=== PATIENT | male | born 1965 ===

== ENCOUNTER 2016-12-22 19:39 | Emergency (ER) | payer MEDICARE, MEDICAID ==
--- NOTE | ~2016-12-22 | ER ---
PATIENT'S NAME: LAZARUS [facility] AGE: 51 Y [address] ROOM: [place], [place] [address] LOCATION: [facility] ADMIT DATE: 12/22/2016 ER/Outpatient Report DISCHARGE DATE: 12/22/2016 FAMILY PHYSICIAN: Luís Sparks MD ATTENDING PHYSICIAN: Matt Lovelace Time of Arrival: 1954 hours. Time of Evaluation: 2010 hours. CHIEF COMPLAINT: Abdominal pain. HISTORY OF PRESENT ILLNESS: The patient states he has been having mid to right epigastric pain for the past 4 days. States that it has become more constant and increased in intensity today. States he ate pizza on Wednesday, and ever since then, the pain has come and gone, been nauseated, no vomiting. He has had chills. He has had some urinary frequency and urgency, but he states that is normal for him. He states he has had some diarrhea stools. Last stool was today. States he was scheduled to see a slurry blender last week for his diarrhea, but the diarrhea stopped, and he was not able to give him a sample. ALLERGIES: NO KNOWN ALLERGIES. CURRENT MEDICATIONS: On the chart and reviewed by me. PAST MEDICAL HISTORY: Peripheral neuropathy, C. diff, bvz-fptnigl-rqslwniru diabetes, dysfunctional diaphragm, hydrocephalus, cancer. PAST SURGICAL HISTORY: ADMINISTRATIVE TECHNICIAN shunt. SOCIAL HISTORY: Lives with his and children. Denies use of tobacco, drugs, or alcohol. REVIEW OF SYSTEMS: All negative other than those mentioned in the HPI. PHYSICAL EXAMINATION: VITAL SIGNS: He weighs 104 kg, blood pressure is 118/83, pulse is 72, respirations 18, temperature of 97.8, O2 saturation is 94% on room air. GENERAL: He is awake, alert, and oriented x4. PATIENT'S NAME: EMILY QIU [facility] AGE: 51 Y [address] ROOM: [place], [place] [address] LOCATION: ED ADMIT DATE: 12/22/2016 ER/Outpatient Report DISCHARGE DATE: 12/22/2016 FAMILY PHYSICIAN: Luís Sparks MD ATTENDING PHYSICIAN: Matt Lvoelace SKIN: Wrens, warm, and dry. RESPIRATIONS: Even and nonlabored. Lung sounds are clear throughout. HEART: Regular rate and rhythm. ABDOMEN: Soft and nondistended. Bowel sounds are present. He has some generalized tenderness on the mid epigastric and right upper quadrant. LABORATORY DATA AND X-RAYS: Lab work was drawn. CBC is within normal limits. Chem panel is within normal limits. Amylase was 30 with a lipase of 96. EMERGENCY DEPARTMENT COURSE: The patient was given Zofran and then a GI cocktail. He states the Zofran did calm down the nausea but not a lot for the pain. The pain did not change while the patient was here in the ER. He did not have any nausea. He was unable to have any stool and give us a sample. IMPRESSION: Abdominal pain. PLAN: The patient will be discharged home. Rest. Fluids. Heat or ice to the abdomen. Recommended that he follow up with his primary provider or the GI staff tomorrow. He agreed with the plan of care and understood. ESTHER WHITE APRN FOR MD JONEL MCCLAIN/delores /[id number] d: 12/23/16 0338 t: 12/26/16 0803, OUTPATIENT REPORT
[~2016-12-22 19:39] MED LIST: ACIDOPHILUS-PE1 EAC3 PO; ADVIL200 MG PO; ASPIRIN (CHILDR81 MG PO; ASPIRIN325 MG PO; BENADRYL25 MG PO; BENEFIBER)(NUTR1 PKT PO; CEPASTAT1 LOZ PO; COGENTIN1 MG PO; DECADRON4 MG PO; ELIQUIS5 MG PO; EXCEDRIN EXTRA1 TAB PO; EXCEDRIN MIGRA1 EACH PO; FLAGYL500 MG PO; FLOMAX0.4 MG PO; FLORASTOR250 MG PO; FLORINEF0.1 MG PO; GEODON80 MG PO; HUMIBID LA (MU600 MG PO; IMODIUM2 MG PO; KLOR-CON 1010 MEQ PO; KLOR-CON M2020 MEQ PO; LAMICTAL100 MG PO; LAMICTAL200 MG PO; LIPITOR20 M1 PO; LYRICA50 MG PO; METAMUCIL PACKE1 PKT PO; MIRALAX17 GM PO; NEOSPORIN1 PKT TOP; NORCO 5-325 MG1 TAB PO; PAIN RELIEVER325 MG PO; PEPCID20 MG PO; PERCOCET 5-3251 EACH PO; POTASSIUM CHLO20 ME1 PO; PRILOSEC20 M1 PO; PROAIR HFA8.5 GM INH; REVLIMID25 MG PO; RIFADIN, RIMAC300 MG PO; RITALIN5 MG PO; TUMS REGULAR ST1 TAB PO; VANCOMYCIN IV; XARELTO15 MG PO; XARELTO20 MG PO; ZANAFLEX2 MG PO; ZANTAC300 MG PO; ZOLOFT100 MG PO; ZOLOFT50 M1 PO; ZOVIRAX200 MG PO; ZYPREXA10 MG PO; ZYPREXA5 MG PO
[2016-12-22 20:37] LABS: BASOPHIL % 0.4 %; EOSINOPHIL # 0.1 K/uL (0.0-0.5); EOSINOPHIL % 2.2 %; HEMATOCRIT 38.2 % (37.0-53.0); HEMOGLOBIN 12.4 g/dL (12.0-17.0); IMMATURE GRANULOCYTE # 0.1 K/uL (0.0-0.3); IMMATURE GRANULOCYTE % 0.9 %; LYMPHOCYTE # 1.6 K/uL (0.8-4.0); LYMPHOCYTE % 30.1 %; MCH 29.9 pg (27.0-34.0); MCHC 32.5 gm/dL (32.0-36.5); MONOCYTE # 0.5 K/uL (0.0-1.0); MONOCYTE % 8.9 %; MPV 9.3 fl (9.4-12.4); NEUTROPHIL # (ANC) 3.1 K/uL (1.4-9.0); NEUTROPHIL % 57.5 %; NRBC % 0 /100WBC (0-0.00); PLATELET COUNT 218 K/uL (150-450); RBC 4.15 M/uL (4.00-6.00); RDW-CV 14.7 % (11.9-14.6); WBC 5.4 K/uL (4.0-11.0)
[2016-12-22 20:53] LABS: ALBUMIN 3.5 gm/dL (3.5-5.0); ALK PHOS 122 IU/L (33-138); ALT 28 IU/L (12-78); ANION GAP 11.6 (10.0-19.0); AST 17 IU/L (10-40); BLOOD UREA NITROGEN 13 mg/dL (6-24); CALCIUM 8.4 mg/dL (8.5-10.5); CHLORIDE 108 mMol/L (96-110); CO2 27 mMol/L (22-32); CREATININE 0.8 mg/dL (0.6-1.3); ESTIMATED GFR (MDRD EQUATION) > 60; POTASSIUM 3.6 mMol/L (3.7-5.1); SODIUM 143 mMol/L (135-145); TOTAL BILIRUBIN 0.3 mg/dL (0.0-1.5); TOTAL PROTEIN 7.2 g/dL (6.0-8.4)
== END 2016-12-22 22:00 | disposition disaster alternative care site (69) ==
LOC: GMED 19:39
PROVIDERS: Emergency Medicine
DX: R10.13 Epigastric pain (principal); R10.11 Right upper quadrant pain; E11.42 Type 2 diabetes mellitus with diabetic polyneuropathy; G91.9 Hydrocephalus, unspecified; Z85.9 Personal history of malignant neoplasm, unspecified; Z86.19 Personal history of other infectious and parasitic diseases; Z98.2 Presence of cerebrospinal fluid drainage device

== ENCOUNTER → 2017-01-12 | Outpatient (CLI) | payer MEDICARE, MEDICAID | END | disposition disaster alternative care site (69) | LOC: GRAD 16:18 | DX: R06.02 Shortness of breath (principal); J98.11 Atelectasis | CPT/HCPCS: Q9967 ==

== ENCOUNTER → 2017-03-02 | Outpatient (CLI) | payer MEDICARE, MEDICAID | END | disposition disaster alternative care site (69) | LOC: GRAD 16:00 | DX: R51 Headache (principal); G93.89 Other specified disorders of brain ==

== ENCOUNTER 2017-03-15 05:58 | Emergency (ER) | payer MEDICARE, MEDICAID ==
--- NOTE | ~2017-03-15 | ER ---
PATIENT'S NAME: EMILY QIU [facility] AGE: 51 Y [address] ROOM: [place] [address] LOCATION: [facility] ADMIT DATE: 03/15/2017 ER/Outpatient Report DISCHARGE DATE: 03/15/2017 FAMILY PHYSICIAN: Luís Sparks MD ATTENDING PHYSICIAN: Yudelka Walsh Time of Arrival: 0558 hours. Time of Evaluation: 0619 hours. IDENTIFICATION: A 51-year-old male. CHIEF COMPLAINT: Syncope. HISTORY OF PRESENT ILLNESS: The patient is a 51-year-old male, who said he got up about 1:15 because he could not sleep, went on watching TV, then took a bath around 3:00 a.m., and then around 4:00 a.m., he found himself on the floor and does not recall anything after that. He has pain in the back of his head and his neck. No other problems or concerns. No chest pain. No cough or shortness of breath. No fever or chills. ALLERGIES: NO KNOWN DRUG ALLERGIES. CURRENT MEDICATIONS: He did not bring his medication list with him. He states that is unchanged from when he has been here in the past. Those medications include: 1. Acidophilus. 2. Olanzapine 5 mg daily. 3. Eliquis 5 mg b.i.d. 4. Tizanidine 2 mg q.6 hours p.r.n. 5. Pepcid 20 mg b.i.d. 6. Flomax 0.4 mg at h.s. 7. Lyrica 75 mg b.i.d. 8. Lamotrigine 100 mg at h.s. 9. Olanzapine 10 mg at h.s. 10. Zoloft 100 mg at h.s. 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 ROOM: [place] [address] LOCATION: [facility] ADMIT DATE: 03/15/2017 ER/Outpatient Report DISCHARGE DATE: 03/15/2017 FAMILY PHYSICIAN: Luís Sparks MD ATTENDING PHYSICIAN: Yudelka Walsh sacrum, status post radiation and chemotherapy; diabetes mellitus type 2; gastroesophageal reflux disease; bipolar disorder; IVC filter placement, C. difficile colitis. ALLERGIES: THE PATIENT STATED THAT HE HAS NO MEDICATION ALLERGIES. RECORDS REFLECT AN ALLERGY TO LENALIDOMIDE. SOCIAL HISTORY: The patient lives at home with his . Tobacco use, denies. Alcohol use, denies. Drug use, denies. REVIEW OF SYSTEMS: All systems reviewed and negative other than what is noted in the HPI. PHYSICAL EXAMINATION: VITAL SIGNS: Weight 100.6 kg, blood pressure 148/92, pulse 74, respirations 20, temp 98, sats 92% on room air. GENERAL: A 51-year-old male, in no acute distress. HEENT: Head: Normocephalic, atraumatic. Ears: TMs translucent both ears. Eyes: Pupils equal and reactive to light and accommodation. Extraocular movements intact. Nose: Mucosa pink. No lesions. Mouth: No lesions. Pharynx benign. NECK: Supple. No lymphadenopathy. No nuchal rigidity. He is tender to palpation in his posterior neck. LUNGS: Clear to auscultation. HEART: Regular rate and rhythm. ABDOMEN: Soft, nondistended, nontender. SKIN: Orrum, warm, and dry. No lesions or rashes noted. NEURO: No focal deficit. The patient is alert and oriented x4. Stephanie Coma Score is 15. LABORATORY DATA AND X-RAYS: Head CT, negative. Cervical spine CT, postsurgical changes. No fracture. Hemoglobin 11.9, hematocrit 35.8, platelets 210, white count 6.0, normal differential. INR 1.03. Sodium 142, potassium 3.4, chloride 108, CO2 of 28, BUN 10, creatinine 1, blood sugar 163. Liver enzymes normal. Magnesium 2.2. CK 238, CK-MB 4.5. Troponin I less than 0.040. EKG: Sinus rhythm at 65 beats per minute. No acute ST elevation or depression. Chest x-ray one-view, no acute process. IMPRESSION: Syncope with head injury. PATIENT'S NAME: EMILY QIU [facility] AGE: 51 Y [address] ROOM: [place] [address] LOCATION: [facility] ADMIT DATE: 03/15/2017 ER/Outpatient Report DISCHARGE DATE: 03/15/2017 FAMILY PHYSICIAN: Luís Sparks MD ATTENDING PHYSICIAN: Yudelka Walsh PLAN: Head injury precautions. Rest. Slow cautious movements. Follow up with Dr. Sparks in 1 day. Follow up sooner if any problems or concerns. The patient understands and agrees, and all questions have been answered. YUDELKA WALSH MD CAR/modl /[id number] d: 03/15/172100 t: 03/17/172041, OUTPATIENT REPORT
[2017-03-15 07:13] LABS: BASOPHIL % 0.7 %; EOSINOPHIL # 0.1 K/uL (0.0-0.5); EOSINOPHIL % 1.5 %; HEMATOCRIT 35.8 % (37.0-53.0); HEMOGLOBIN 11.9 g/dL (12.0-17.0); IMMATURE GRANULOCYTE # 0.1 K/uL (0.0-0.3); IMMATURE GRANULOCYTE % 0.8 %; LYMPHOCYTE # 1.2 K/uL (0.8-4.0); LYMPHOCYTE % 20.7 %; MCH 30.4 pg (27.0-34.0); MCHC 33.2 gm/dL (32.0-36.5); MCV 91.6 fl (83.0-98.0); MONOCYTE # 0.5 K/uL (0.0-1.0); MONOCYTE % 7.7 %; MPV 8.8 fl (9.4-12.4); NEUTROPHIL # (ANC) 4.1 K/uL (1.4-9.0); NEUTROPHIL % 68.6 %; NRBC % 0 /100WBC (0-0.00); PLATELET COUNT 210 K/uL (150-450); RBC 3.91 M/uL (4.00-6.00); RDW-CV 14.1 % (11.9-14.6)
[2017-03-15 07:23] LABS: INR - (THERAPEUTIC) 1.03 (0.92-1.07); PROTIME 10.8 SECONDS (9.8-11.4); PTT 25 SECONDS (25-32)
[2017-03-15 07:37] LABS: ALBUMIN 3.6 gm/dL (3.5-5.0); ALK PHOS 133 IU/L (33-138); ALT 26 IU/L (12-78); ANION GAP 9.4 (10.0-19.0); AST 24 IU/L (10-40); BLOOD UREA NITROGEN 10 mg/dL (6-24); CALCIUM 8.2 mg/dL (8.5-10.5); CHLORIDE 108 mMol/L (96-110); CO2 28 mMol/L (22-32); CPK 238 IU/L (35-332); MAGNESIUM 2.2 mg/dL (1.8-2.6); POTASSIUM 3.4 mMol/L (3.7-5.1); SODIUM 142 mMol/L (135-145); TOTAL PROTEIN 7.3 g/dL (6.0-8.4)
[2017-03-15 07:39] LABS: TOTAL BILIRUBIN 0.2 mg/dL (0.0-1.5)
== END 2017-03-15 08:01 | disposition disaster alternative care site (69) ==
LOC: GACC 05:58
PROVIDERS: Family Medicine
DX: R55 Syncope and collapse (principal); S09.90XA Unspecified injury of head, initial encounter; G91.9 Hydrocephalus, unspecified; E11.9 Type 2 diabetes mellitus without complications; K21.9 Gastro-esophageal reflux disease without esophagitis; F31.9 Bipolar disorder, unspecified; Z86.711 Personal history of pulmonary embolism; Z86.718 Personal history of other venous thrombosis and embolism; Z98.2 Presence of cerebrospinal fluid drainage device; Z88.8 Allergy status to other drugs, medicaments and biological substances; Z79.01 Long term (current) use of anticoagulants; Z79.899 Other long term (current) drug therapy; W18.30XA Fall on same level, unspecified, initial encounter